=== PATIENT | male | born 1980 | race Caucasian/White ===

== ENCOUNTER 2018-08-01 16:47 | Emergency (ER) | payer OTHER ==
[~2018-08-01] VITALS: Ht 182.9 cm; Wt 86.2 kg
[~2018-08-01 16:47] MED LIST: CARB100CH; CLIN300 PO; CLON1; HYDACE5 PO; LEVSOD100 PO; LEVSOD25 PO; LORA1; METHADONE; OXYACE5T PO; PRED10 PO; QUET100 PO; QUET300; SULTRIDS PO; TRIA80TC TOP; [UNRECOGNIZED DRUG - REMARK]; [UNRECOGNIZED DRUG - REMARK]
== END 2018-08-01 17:17 | disposition home or self-care (01) ==
LOC: ER 16:47
DX: S81.812A Laceration without foreign body, left lower leg, initial encounter (principal); W01.0XXA Fall on same level from slipping, tripping and stumbling without subsequent striking against object, initial encounter; Z88.8 Allergy status to other drugs, medicaments and biological substances; Z79.899 Other long term (current) drug therapy; F32.9 Major depressive disorder, single episode, unspecified; F17.200 Nicotine dependence, unspecified, uncomplicated
CPT/HCPCS: 12004; 90471; 90714; 99282-25

== ENCOUNTER 2018-09-08 14:53 | Emergency (ER) | payer OTHER ==
[~2018-09-08] VITALS: Ht 182.9 cm; Wt 99.8 kg
[2018-09-08] MEDS ORDERED: Norco 5-325 Ta1 EACH PO (17:03)
== END 2018-09-08 17:05 | disposition home or self-care (01) ==
LOC: ER 14:53
DX: S93.402A Sprain of unspecified ligament of left ankle, initial encounter (principal); S93.401A Sprain of unspecified ligament of right ankle, initial encounter; F17.200 Nicotine dependence, unspecified, uncomplicated; X58.XXXA Exposure to other specified factors, initial encounter
CPT/HCPCS: 73610; 99284-25